=== PATIENT | male | born 1965 | race Caucasian/White ===

== ENCOUNTER 2016-05-08 19:35 | Emergency (ER) | payer OTHER | END 2016-05-08 21:38 | disposition home or self-care (01) | LOC: ER 19:35 | DX: R42 Dizziness and giddiness (principal); I10 Essential (primary) hypertension; F17.210 Nicotine dependence, cigarettes, uncomplicated; Z79.899 Other long term (current) drug therapy | CPT/HCPCS: 99282 ==

== ENCOUNTER 2016-06-30 05:08 | Emergency (ER) | payer OTHER ==
[2016-06-30 05:58] LABS: BASO % 0.2 % (0.2-1.2); EOS # 0.1 10_X3_uL (0.0-0.5); EOS % 0.6 % (0.8-7.0); GRAN # 10.9 10_X3_uL (1.8-5.4); GRAN % 76.3 % (34.0-67.9); HEMATOCRIT 44.9 % (40-51); HEMOGLOBIN 15.5 g/dL (13.7-17.5); LYMPH # 2.1 10_X3_uL (1.3-3.6); LYMPH % 14.8 % (21.8-53.1); MEAN CORPUSCULAR HEMOGLOBIN 30.8 pg (27.0-33.0); MEAN CORPUSCULAR HGB CONC 34.5 g/dL (32.0-36.0); MEAN CORPUSCULAR VOLUME 89.1 fL (79-92); MONO # 1.2 10_X3_uL (0.3-0.8); MONO % 8.1 % (5.3-12.2); PLATELET COUNT 306 x10_3/uL (163-337); RED BLOOD COUNT 5.04 x10_6/uL (4.6-6.1); RED CELL DISTRIBUTION WIDTH 14.4 % (11.6-14.4); WHITE BLOOD COUNT 14.3 x10_3/uL (4.2-9.1)
[2016-06-30 06:06] LABS: ALBUMIN 4.2 gm/dL (3.4-5.0); ALKALINE PHOSPHATASE 81 U/L (50-136); ALT/SGPT 25 U/L (7.53-40.17); AST/SGOT 16 U/L (6.66-35.34); BILIRUBIN,TOTAL 0.34 mg/dL (0.0-1.0); BLOOD UREA NITROGEN 16 mg/dL (7-18); CALCIUM 9.2 mg/dL (8.7-10.7); CARBON DIOXIDE 22 mmol/L (21-32); CREATININE 0.8 mg/dL (0.6-1.3); GLUCOSE,RANDOM 119 mg/dL (70-99); POTASSIUM 4.7 mmol/L (3.5-5.1); SODIUM 140 mmol/L (136-145); TOTAL PROTEIN 6.8 gm/dL (6.4-8.2)
[2016-06-30 06:11] LABS: THYROID STIMULATING HORMONE 0.847 uIU/mL (0.34-4.82)
[2016-06-30 06:15] LABS: TROP-I < 0.30 NG/ML (0.00-0.30)
== END 2016-06-30 06:25 | disposition home or self-care (01) ==
LOC: ER 05:08
PROVIDERS: General Practice
DX: E86.0 Dehydration (principal); R53.1 Weakness; J84.9 Interstitial pulmonary disease, unspecified; F17.210 Nicotine dependence, cigarettes, uncomplicated; Z79.899 Other long term (current) drug therapy
CPT/HCPCS: 36415; 71010; 80053; 80307; 82962; 84443; 85025; 93005; 96360; 99070; 99284-25; J7040